=== PATIENT | female | born 1995 | race Caucasian/White ===

== ENCOUNTER 2019-11-13 18:24 | Emergency (ER) | payer OTHER ==
[~2019-11-13] VITALS: Ht 170.2 cm; Wt 83.9 kg
[2019-11-13 18:29] VITALS: Ht 170.2 cm; Wt 83.9 kg
[2019-11-13 19:02] VITALS: BP 128/72
== END 2019-11-13 19:02 | disposition home or self-care (01) ==
LOC: ED 18:24
DX: B34.9 Viral infection, unspecified (principal)